=== PATIENT | female | born 1960 | race Caucasian/White ===

== ENCOUNTER 2019-05-10 14:55 | Outpatient (RCR) | payer BC | END 2019-07-02 | disposition home or self-care (01) | LOC: ONC 14:55 | PROVIDERS: ATTEND Radiology Radiation Oncology | DX: Z51.0 Encounter for antineoplastic radiation therapy (principal) | CPT/HCPCS: 77290; 77295; 77300; 77307; 77334; 77336; 77417; 99204 ==

== ENCOUNTER → 2019-08-07 | Outpatient (CLI) | payer BC | LOC: EDSTATUS 07-03 16:13 → ONC 16:14 | PROVIDERS: ATTEND Radiology Radiation Oncology | DX: C50.512 Malignant neoplasm of lower-outer quadrant of left female breast (principal) | CPT/HCPCS: 99213 ==

== ENCOUNTER 2021-01-05 05:33 | Outpatient (CLI) | payer BC ==
[~2021-01-05] VITALS: Ht 160 cm; Wt 55.9 kg
[2021-01-05] MEDS ORDERED: QUIN40TA14 PO (11:06)
[2021-01-05] MEDS ORDERED: ANAS1TAB50 PO (11:06)
[2021-01-05] MEDS ORDERED: TERI14TA PO (11:06)
[2021-01-05] MEDS ORDERED: NORT50CA PO (11:40)
[2021-01-05] MEDS ORDERED: VIT1CAPS44 PO (11:40)
[2021-01-05] MEDS ORDERED: ROSU10TA28 PO (11:40)
[2021-01-05] MEDS ORDERED: SERT-413 PO (11:40)
[2021-01-05] MEDS ORDERED: METF-865 PO (11:40)
[2021-01-05] MEDS ORDERED: CINN500C2 PO (11:40)
[2021-01-05] MEDS ORDERED: CYAN100088 PO (11:40)
[2021-01-05] MEDS ORDERED: HYDR12.56 PO (11:40)
[2021-01-05] MEDS ORDERED: ATEN100T PO (11:40)
[2021-01-05] MEDS ORDERED: CALC-250 PO (11:40)
[2021-01-05] MEDS ORDERED: EMPA25TA PO (11:40)
[2021-01-05] MEDS ORDERED: UBID100C44 PO (11:40)
[2021-01-05] MEDS ORDERED: LEVO75CA5 PO (11:40)
[2021-01-05] MEDS ORDERED: RT-ALBUINH IH (11:42)
[2021-01-05] MEDS ORDERED: MONT10TA32 PO (11:42)
== END 2021-01-05 11:48 | disposition home or self-care (01) ==
LOC: PREOP 05:33
PROVIDERS: ATTEND Obstetrics & Gynecology
DX: Z01.818 Encounter for other preprocedural examination (principal)

== ENCOUNTER 2021-01-12 06:08 | Day surgery (SDC) | payer BC ==
[2021-01-12] VITALS (13 sets, daily range): BP systolic 114–161; BP diastolic 57–88
[~2021-01-12] VITALS: Ht 160 cm; Wt 55.9 kg
[~2021-01-12 06:08] MED LIST: ANAS1TAB50 PO; ATEN100T PO; CALC-250 PO; CINN500C2 PO; CYAN100088 PO; EMPA25TA PO; HYDR12.56 PO; LEVO75CA5 PO; METF-865 PO; MONT10TA32 PO; NORT50CA PO; QUIN40TA14 PO; ROSU10TA28 PO; RT-ALBUINH IH; SERT-413 PO; TERI14TA PO; UBID100C44 PO; VIT1CAPS44 PO
[2021-01-12 06:30] LABS: BILIRUBIN,URINE NEGATIVE (NEGATIVE); CLARITY,URINE CLEAR; COLOR,URINE YELLOW; GLUCOSE, URINE (UA) NEGATIVE (NEGATIVE); KETONES,URINE NEGATIVE (NEGATIVE); LEUKOCYTE ESTERASE ,URINE NEGATIVE (NEGATIVE); NITRITE,URINE NEGATIVE (NEGATIVE); PROTEIN,URINE 2+ (NEGATIVE)
[2021-01-12] MEDS ORDERED: ceFAZolin 2 GM IV Premixed 50 ML IV ONE (06:30)
[2021-01-12] MEDS ORDERED: LIDOCAINE PF 2% 5 ML (XYLOCAINE) VIAL ONE (06:57)
[2021-01-12] MEDS ORDERED: ONDANSETRON 4 MG/2 ML (SDV) Z0FRAN ONE (06:57)
[2021-01-12] MEDS ORDERED: fentaNYL INJ 100 MCG/2 ML AMP ONE (06:57)
[2021-01-12] MEDS ORDERED: MIDAZOLAM 2 MG/2 ML (VERSED) VIAL ONE (06:57)
[2021-01-12] MEDS ORDERED: ROCURONIUM 10 MG/ML 5 ML SYRINGE IV ONE (06:57)
[2021-01-12] MEDS ORDERED: proPOfol 200 MG/20 ML (DIPRIVAN) VIAL IV ONE (06:57)
[2021-01-12 06:58] LABS: BASOPHILS # (AUTO) 0.1 10^3/uL (0.0-0.1); BASOPHILS % (AUTO) 1 % (0-10); EOSINOPHILS # (AUTO) 0.1 10^3/uL (0.0-0.3); EOSINOPHILS % (AUTO) 2 % (0-10); HEMATOCRIT 44 % (35-52); HEMOGLOBIN 14.4 g/dL (11.5-16.0); LYMPHOCYTES # (AUTO) 1.1 10^3/uL (1.0-4.0); LYMPHOCYTES % (AUTO) 17 % (12-44); MEAN CORPUSCULAR HEMOGLOBIN 28 pg (25-34); MEAN CORPUSCULAR HGB CONC 33 g/dL (32-36); MEAN CORPUSCULAR VOLUME 85 fL (80-99); MEAN PLATELET VOLUME 9.7 fL (9.0-12.2); MONOCYTES # (AUTO) 0.6 10^3/uL (0.0-1.0); MONOCYTES % (AUTO) 9 % (0-12); NEUTROPHILS # (AUTO) 4.7 10^3/uL (1.8-7.8); NEUTROPHILS % (AUTO) 72 % (42-75); PLATELET COUNT 238 10^3/uL (130-400); WHITE BLOOD COUNT 6.6 10^3/uL (4.3-11.0)
[2021-01-12 07:01] LABS: AMORPHOUS SEDIMENT,UR MOD AMOR URATES /LPF; BACTERIA,URINE TRACE /HPF; GRANULAR CASTS,URINE 0-2 /LPF; WBC,URINE 0-2 /HPF
[2021-01-12] MEDS ORDERED: ESTRADIOL VAGINAL CREAM 42.5 GM (ESTRACE) VG ONE (07:04)
[2021-01-12] MEDS ORDERED: LIDOCAINE/EPI 1%-1:100,000 (XYLOCAINE) 20ML ONE (07:04)
[2021-01-12] MEDS ORDERED: VASOPRESSIN INJECTION 20 UNIT/ML VIAL ONE (07:04)
[2021-01-12] MEDS ORDERED: NS (IVPB) 100 ML ONE (07:04)
[2021-01-12] MEDS: LACTATED RINGERS 1,000 ML IV PRN ×3 (07:08→12:32)
--- NOTE | 2021-01-12 09:01 | Progress Note-Pre Operative ---
Pre-Operative Progress Note H&P Reviewed The H&P was reviewed, patient examined and no changes noted. Date Seen by Provider: Jan 12, 2021 Time Seen by Provider: 08:40 Date H&P Reviewed: Jan 12, 2021 Time H&P Reviewed: 08:30 Pre-Operative Diagnosis: incomplete uterovaginal prolapse/stress incontinence HIWOT MENDOZA DO Jan 12, 2021 09:00
[2021-01-12] MEDS ORDERED: PHENYLEPHRINE 100 MCG/ML 10 ML (ANESTHESIA) SYR ONE (09:27)
[2021-01-12] MEDS ORDERED: SEVOFLURANE (ULTANE) 15 ML INHAL SOLN ONE (11:55)
[2021-01-12] MEDS ORDERED: morphine INJ 4 MG/ML 1 ML (VIAL/SYRINGE) IVP PRN (12:00)
[2021-01-12] MEDS ORDERED: CHLORASEPTIC LOZENGE MM PRN (12:00)
[2021-01-12] MEDS ORDERED: ONDANSETRON 4 MG/2 ML (SDV) Z0FRAN IV PRN (12:00)
[2021-01-12] MEDS ORDERED: PATIENT MAY USE OWN MEDS, ALL MC SCH (12:00)
[2021-01-12] MEDS ORDERED: SIMETHICONE 80 MG (MYLICON) CHEW PO PRN (12:00)
--- NOTE | 2021-01-12 12:06 | Operative Report ---
Operative Report Date of Procedure/Surgery Jan 12, 2021 Surgeon (s) HIWOT MENDOZA DO Senior Linux Administrator (s): NA Post-Operative Diagnosis same Procedure Performed RaTH, BSO A&P repair PV sling Description of Procedure Anesthesia Type: General Estimated blood loss (mL): 50 Specimen(s) collected/removed uterus, tubes, ovaries Description of the Procedure After informed consent was obtained, patient was taken into the operating room where general anesthetic was found to be adequate. She was prepped and draped in the usual sterile fashion in the dorsal lithotomy position. A Gardner catheter was placed. A speculum was placed in the vagina. There was a moderate (2-3+) rectocele, and a smaller cystocele. The cervix was visualized and the anterior lip was grasped with a sharp toothed tenaculum. The uterus was sounded and depth was approximately 6 centimeters. I had to gently dilate the cervix with Denzel dilators to allow insertion of the Girma device. I placed the Girma device (6 cm) and a 3 cm collar was advanced over the cervix. I inserted the Girma without difficulty, inflating the balloon and securing it around the fornix of the cervix. The collar was then secured with sutures at 12 o'clock. Attention was then turned to the patient's abdomen. The skin was injected with 1% lidocaine with epinephrine. A supraumbilical incision was made about 8 mm in length. A Veress needle was inserted and I confirmed intraabdominal placement with a drop in pressure and the saline drop test. However, it did seem that the needle backed out and there was some insufflation of the supraperitoneal space. This was recognized easily and the Veress was removed and replaced. The saline drop test was repeated. The opening pressure was 7 mmHg. I then insufflated the abdomen to a maximum of 15 mmHg with warmed CO2 gas. The second robotic port was placed about 15 cm lateral to the supraumbilical. placement. This was an 8 mm trocar. An additional 8 mm trocar lateral to the right of the umbilicus about 12 cm. These were placed under direct visualization of the laparoscope. When all placements were confirmed, the patient was placed in steep Trendelenburg allowing adequate visualization and the robot was brought in for docking. The docking was accomplished without difficulty. It was determined that this could be completed robotically. I then took over the command of the robot utilizing the Sync vessel sealer and monopolar mariela. It was obvious that the Girma device had perforated the lower uterine segment and to the right. This was sub peritoneal (under the vesicouter ine peritoneum). This avoided the bladder. There was a tight band of scar/adhesion from the left lateral uterus to the left pelvic side wall. This was similar in appearance to the round ligament, but was more inferior and was scar tissue. I clamped this with the vessel sealer and then cut. I was able to visualize the round ligaments bilaterally and grasped them and cauterized with bipolar cautery and then cut with my mariela. There were also some filmy adhesions in the posterior culdesac and peritubal and periovarian. Primarily on the right. the right ovary was stuck to the right ovarian fossa. At this point, I placed the Sync vessel sealer across the infundibulopelvic ligaments bilaterally. Due to the filmy adhesions, I was concerned that the ureter may be involved. However, both ureters were obviously away from the area of dissection. I was able to visualize these bilaterally throughout the procedure. I then moved my dissection to the posterior leaves of the broad ligament. I dissected the posterior leaves of the broad ligament off the uterine arteries skeletonizing them bilaterally. I then took a second clamp with the bipolar cautery and with the mariela, transected the vessels away from the lateral aspect to the cervical stroma. I I carefully dissected the anterior peritoneum off the lower uterine segment. I continually pushed the bladder back and I took excessively great care and I was eventually able to dissect the vesicouterine peritoneum off the lower uterine segment. Due to the placement of the Girma balloon (perforation in the lower uterine segment), I had to take excessive care to avoid this area with my dissection. I was able to do most of the dissection from the posterior side. I then dissected in a V fashion towards the midline between the uterosacral ligaments. This allowed me to skeletonize the uterine vessels bilaterally. The balloon on the GIRMA was insufflated. This allowed me to see the GIRMA circumferentially. I then performed a colpotomy anteriorly and then amputate with cervix away from the vaginal fornix. I then continued the colpotomy circumferentially. Once this was performed, the assistant chief of police removed the uterus, tubes and ovaries through the vagina. She then left a laparotomy sponge in the vagina to maintain the pneumoperitoneum. . I then began closure of the vaginal cuff. I closed the apices of the vaginal cuff with 2-0 Vicryl V lock sutures with a colposuspension through the uterosacral ligaments. This suspended the apices of the vaginal cuff. I extended this to the midline from both sides and overlapped the V lock sutures in the midline. Excellent closure is noted and hemostasis is achieved. All the needles were removed from the patient's abdomen. I now irrigated the pelvis. There were some adhesions in the left pelvis (mesentery) and these were taken down with the mariela. There was good hemostasis. This is likely due to colitis or diverticulitis. The pelvis was irrigated. There was no active bleeding noted. Bilateral ureters were seen the entire time during the surgery and were peristalsing. There was no excessive bleeding noted. the robotic instruments were removed from the abdomen and the robot was undocked. The trocars were removed under direct visualization. The laparoscopic sites were visualized and found to be hemostatic. The skin incisions were closed with 4-0 Monocryl in a subcuticular fashion and then with Dermabond. Op sites were placed over the incision sites. The instruments were removed from the vagina and I noted there were no abrasions. The patient was repositioned for the vaginal repair. A Lonestar retractor was placed. I grasped the perineum on either side of the midline with the Lone star stays. I then injected the posterior epithelium with the dilute vaso pressin and then made a midline incision I undermined the posterior vaginal epithelium and then dissected this off of the pubovaginal fascia laterally. there was some scarring on the perineum and the introitus was very narrow. I made an incision similar to a second degree perineal laceration to allow insertion of the instruments. I then reduced the rectocele with two layers of i nterrupted figure of eight style 2-0 Vicryl sutures. This adequately reduced the rectocele. There was no enterocele. I then trimmed the vaginal epithelium and then closed the defect with 2-- Vicryl in a running fashion. I now turned my attention the anterior vaginal wall. I grasped this in the midline and a midline skin incision was made. The vaginal epithelium was dissected off of the pubovaginal fascia to the white line laterally. I now reduced the cystocele with interrupted figure of eight stitches of 2-0 Vicryl. Once this was adequately reduced, I continued dissection in the periurethral space bilaterally. I then proceeded with the pubovaginal sling. I placed the Apparatus in the standard fashion, first in the left and then the right. I then did cystoscopy and revealed no intravaginal pathology and no injury to the bladder. There was efflux from bilateral ureters. I removed the cystoscope and then did Crede of the bladder with approximately 300 ml of urine. The Sling was laying smoothly and not tight under the midurethra and not too tight. At this point, I now repaired the second degree "episiotomy" in standard fashion with 2-0 Vicryl. The vagina was then packed with Estrace cream and vaginal packing. Sponge, lap, needle and instrument counts correct times two. Patient was awakened and taken to recovery in a stable condition. Findings of the Procedure 2-3+ rectocele 2-3+ uterine prolapse 2+ cystocele EDMUND > 50 deg rotation vesicovaginal adhesions tight adhesion of the uterus to the left lateral wall Allergies and Home Medications Allergies Coded Allergies: Sulfa (Sulfonamide Antibiotics) (Verified Allergy, Unknown, unsure, 01/05/21) Home Medications Albuterol Sulfate 1 Puff Puff, 2 PUFF IH Q4H PRN for WHEEZING, (Reported) 1 PUFF = 90 MCG Last Action: Last Taken Edited Anastrozole 1 Mg Tablet, 1 MG PO DAILY, (Reported) Last Action: Last Taken Edited Atenolol 100 Mg Tablet, 100 MG PO BID, (Reported) Last Action: Last Taken Edited Cholecalciferol (Vitamin D3) 125 Mcg Tablet, 125 MCG PO DAILY, (Reported) Last Action: Last Taken Edited Cinnamon Bark 500 Mg Capsule, 500 MG PO DAILY, (Reported) Last Action: Last Taken Edited Cyanocobalamin (Vitamin B-12) 1,000 Mcg Tablet, 1,000 MCG PO DAILY, (Reported) Last Action: Last Taken Edited Empagliflozin 25 Mg Tablet, 25 MG PO DAILY, (Reported) Last Action: Last Taken Edited Hydrochlorothiazide 12.5 Mg Tablet, 6.25 MG PO DAILY, (Reported) take 1/2 of 12.5mg tab Last Action: Last Taken Edited Levothyroxine Sodium 75 Mcg Capsule, 75 MCG PO DAILY, (Reported) Last Action: Last Taken Edited Metformin HCl 500 Mg Tab.er.24h, 1,000 MG PO BID, (Reported) take 2 (500mg) tabs Last Action: Last Taken Edited Montelukast Sodium 10 Mg Tablet, 10 MG PO DAILY, (Reported) Last Action: Last Taken Edited Nortriptyline HCl 50 Mg Capsule, 100 MG PO HS, (Reported) take 2 (50mg) tabs Last Action: Last Taken Edited Quinapril HCl 40 Mg Tablet, 40 MG PO DAILY, (Reported) Last Action: Last Taken Edited Rosuvastatin Calcium 10 Mg Tablet, 10 MG PO HS, (Reported) Last Action: Last Taken Edited Sertraline HCl 50 Mg Tablet, 50 MG PO DAILY, (Reported) Last Action: Last Taken Edited Teriflunomide 14 Mg Tablet, 14 MG PO DAILY, (Reported) Last Action: Last Taken Edited Ubidecarenone 100 Mg Capsule, 100 MG PO DAILY, (Reported) Last Action: Last Taken Edited Vit C/E/Zn/Coppr/Lutein/Zeaxan 1 Each Capsule, 1 EACH PO DAILY, (Reported) Last Action: Last Taken Edited Patient Home Medication List Home Medication List Reviewed: Yes HIWOT MENDOZA DO Jan 12, 2021 12:06
[2021-01-12] MEDS ORDERED: ONDANSETRON 4 MG/2 ML (SDV) Z0FRAN IVP PRN (12:15)
[2021-01-12] MEDS ORDERED: morphine INJ 10 MG/ML 1ML (SYR OR VIAL) IVP ONE (12:15)
[2021-01-12] MEDS ORDERED: HYDROmorphone 2 MG/ML VIAL (DILAUDID) IV ONE (12:15)
[2021-01-12] MEDS ORDERED: MEPERIDINE (DEMEROL) INJ 50 MG/ML IVP ONE (12:15)
[2021-01-12] MEDS ORDERED: HYDROmorphone 2 MG/ML VIAL (DILAUDID) ONE (12:22)
[2021-01-12] MEDS: KETOROLAC 30 MG/ML VIAL IV SCH ×2 (14:15→20:31)
[2021-01-12] MEDS: ACETAMINOPHEN 500 MG TAB (TYLENOL) PO SCH ×2 (14:15→22:23)
[2021-01-12] MEDS ORDERED: RT-ALBUTEROL SULF 2.5 MG/3 ML PRE-MIX VIAL INH PRN (14:15)
[2021-01-12] MEDS: inSUlin ASPART (NovoLOG) 1 UNIT/0.01 ML (CHARGE PER UNIT) SC SCH ×2 (16:49→20:59)
[2021-01-12] MEDS: RT-ALBUTEROL SULF 2.5 MG/3 ML PRE-MIX VIAL INH SCH ×2 (18:32→22:15)
[2021-01-12] MEDS: LACTATED RINGERS 1,000 ML IV SCH (19:28)
[2021-01-12] MEDS ORDERED: ACET-93 PO (19:57)
[2021-01-12] MEDS ORDERED: IBUP-844 PO (19:57)
[2021-01-12] MEDS ORDERED: DCS100C PO (19:57)
[2021-01-12] MEDS ORDERED: SMT80CT PO (19:57)
[2021-01-12] MEDS ORDERED: OXC5T PO (19:57)
--- NOTE | 2021-01-12 20:00 | Discharge Inst-Women's Service ---
Discharge Inst-Women's Serv Depart Medication/Instructions New, Converted or Re-Newed RX: RX on Chart Instructions no lifting over 25 lbs nothing in the vagina (except vaginal cream to start 2 weeks post op) Final Diagnosis incomplete uterovaginal prolapse/cystocele/rectocele Stress urinary incontinence MS breast cancer Problems Reviewed?: Yes Consults/Follow Up Additional Follow Up: Yes (1-2 weeks, incision check; 8 weeks pelvic exam) Activity Activity: Activity as Tolerated Driving Instructions: No Driving for 1 Week NO SMOKING: NO SMOKING Nothing Inside Vagina: No Douching, No Ringo, No Tampons Diet Discharge Diet: No Restrictions Symptoms to Report to : Bleeding Excessive, Pain Increased, Constipation(P ersistant), Fever Over 101 Degrees F, Pain/Pressure in Jaw, Vaginal Bleeding Increase, Vaginal Discharge Foul For Any Problems or Questions: Contact Your Physician Skin/Wound Care Infection Signs and Symptoms: Increased Redness, Foul Odor of Wound, Increased Drainage, Skin Itchy or Has a Rash, Increased Swelling, Temperature Above 101 F Operative Area Clean and Dry: You May Remove Bandage (in 3 days, or if soiled/wet) HIWOT MENDOZA DO Jan 12, 2021 19:59
[2021-01-12] MEDS: DOCUSATE SODIUM 100 MG (COLACE) CAP PO SCH (20:31)
[2021-01-12] MEDS ORDERED: traZODone 50 MG (DESYREL) TAB PO SCH (21:00)
[2021-01-13 00:43] VITALS: BP 112/56
[2021-01-13] MEDS: RT-ALBUTEROL SULF 2.5 MG/3 ML PRE-MIX VIAL INH SCH ×3 (02:04→11:06)
[2021-01-13] MEDS: KETOROLAC 30 MG/ML VIAL IV SCH ×2 (02:06→10:01)
[2021-01-13] MEDS: LACTATED RINGERS 1,000 ML IV SCH (02:09)
[2021-01-13] MEDS: inSUlin ASPART (NovoLOG) 1 UNIT/0.01 ML (CHARGE PER UNIT) SC SCH (06:09)
[2021-01-13] MEDS: ACETAMINOPHEN 500 MG TAB (TYLENOL) PO SCH (06:10)
[2021-01-13 06:11] VITALS: BP 114/57
--- NOTE | 2021-01-13 08:47 | Progress Note ---
Subjective Date Seen by a Provider: Jan 13, 2021 Time Seen by a Provider: 08:40 Subjective/Events-last exam POD 1 s/p RaTH, BSO, A&P repair, PV sling UO was excellent overnight. Vag pack and Gardner out Blood sugars were all high and required insulin. Restarted her regular meds last night and today. Plan DC home once she has voided. Objective Exam Vital Signs Date Time Temp Pulse Resp B/P (MAP) Pulse Ox O2 Delivery O2 Flow Rate FiO2 01/13/21 08:00 91 Room Air 0.00 01/13/21 06:11 36.2 99 18 114/57 (76) 96 Room Air 01/13/21 02:04 98 Room Air 01/13/21 00:43 36.3 97 18 112/56 (74) 97 Room Air 01/12/21 22:15 97 Room Air 01/12/21 20:25 36.5 100 18 120/58 (78) 96 Room Air 01/12/21 18:32 97 Room Air 01/12/21 18:08 36.3 93 18 124/60 (81) Room Air 01/12/21 14:18 36.3 88 18 125/57 (79) Room Air 01/12/21 13:15 36.1 87 16 122/58 (79) 99 Room Air 01/12/21 13:10 36.3 20 127/67 (87) 98 Room Air 01/12/21 13:10 Room Air 01/12/21 13:00 20 130/67 (88) 98 Room Air 01/12/21 13:00 Room Air 01/12/21 12:50 20 138/67 (90) 100 OxyMask 2 01/12/21 12:45 OxyMask 2 01/12/21 12:40 20 145/74 (97) 100 OxyMask 4 01/12/21 12:30 20 152/76 (101) 100 OxyMask 4 01/12/21 12:30 OxyMask 4 01/12/21 12:20 20 151/88 (109) 100 OxyMask 4 01/12/21 12:15 OxyMask 6 01/12/21 12:10 16 161/82 (108) 100 OxyMask 6 01/12/21 12:06 36.3 16 159/77 (104) 100 OxyMask 6 01/12/21 12:06 OxyMask 6 I & O 01/13/21 07:00 Intake Total 2920 ml Output Total 2800 ml Balance 120 ml Capillary Refill : Less Than 3 Seconds Results Lab Laboratory Tests 01/12/21 12:18: Glucometer 188H 01/12/21 16:34: Glucometer 236H 01/12/21 20:25: Glucometer 225H 01/13/21 05:58: Glucometer 190H HIWOT MENDOZA DO Jan 13, 2021 08:47
[2021-01-13] MEDS: DOCUSATE SODIUM 100 MG (COLACE) CAP PO SCH (09:59)
[2021-01-13 10:02] VITALS: BP 125/59
--- NOTE | 2021-01-13 10:31 | Anesthesia-General Post-Op ---
General Patient Condition Mental Status/LOC: Same as Preop Cardiovascular: Satisfactory Nausea/Vomiting: Absent Respiratory: Satisfactory Pain: Controlled Complications: Absent Post Op Complications Complications None Follow Up Care/Instructions Patient Instructions None needed. Anesthesia/Patient Condition Patient Condition Patient is doing well, no complaints, stable vital signs, no apparent adverse anesthesia problems. No complications reported per nursing. NATHALIE STEVE CRNA Jan 13, 2021 10:31
[2021-01-13] MEDS ORDERED: BENZOCAINE/MENTHOL (DERMOPLAST) 56 ML CAN TP ONE (12:00)
[2021-01-13] MEDS ORDERED: BENZOCAINE/MENTHOL (DERMOPLAST) 56 ML CAN TP PRN (12:15)
[2021-01-13] MEDS ORDERED: IBUPROFEN 600 MG (MOTRIN) TAB PO SCH (14:00)
== END 2021-01-13 12:30 | disposition home or self-care (01) ==
LOC: SDC 06:08 → WS 12:20 → SDC 01-13 12:30
PROVIDERS: ATTEND Obstetrics & Gynecology
DX: D25.1 Intramural leiomyoma of uterus (principal); N73.6 Female pelvic peritoneal adhesions (postinfective); N72 Inflammatory disease of cervix uteri; N81.3 Complete uterovaginal prolapse; N89.5 Stricture and atresia of vagina; R15.9 Full incontinence of feces; K64.4 Residual hemorrhoidal skin tags; K62.0 Anal polyp; K62.1 Rectal polyp; E07.9 Disorder of thyroid, unspecified; G35 Multiple sclerosis; N39.46 Mixed incontinence; I10 Essential (primary) hypertension; E78.5 Hyperlipidemia, unspecified; K21.9 Gastro-esophageal reflux disease without esophagitis; E11.9 Type 2 diabetes mellitus without complications; J45.909 Unspecified asthma, uncomplicated; Z79.82 Long term (current) use of aspirin; Z79.899 Other long term (current) drug therapy; Z79.84 Long term (current) use of oral hypoglycemic drugs; Z79.890 Hormone replacement therapy; Z85.3 Personal history of malignant neoplasm of breast; Z80.9 Family history of malignant neoplasm, unspecified
CPT/HCPCS: 57260; 57288; 58571; 81000; 82947 ×2; 85025; 86850; 86900; 86901; 87081; 94640 ×2; 94664; 94760 ×2; C1771; 36415